=== PATIENT | male | born 1980 | race Caucasian/White ===

== ENCOUNTER 2024-09-12 08:07 | Outpatient (CLI) | payer BC, SELFPAY ==
--- NOTE | ~2024-09-12 | MR_ITS ---
MRI of the left knee Clinical history: Pain Technique: Coronal proton density and proton density-weighted images, sagittal proton-density and T2 fat-sat images, and axial proton-density fat-saturated images were acquired. Findings: ACL is thickened with extensive increased signal within intact fibers, compatible severe mu coid degenerative change. Posterior cruciate ligament is intact. Medial collateral ligament and the l ateral collateral ligament complex are intact. There is large vertical/radial tear at the posterior horn of the medial meniscus near the root. No la teral meniscal tear evident. Articular cartilage is relatively well preserved throughout the knee. Bone marrow signals are unremar kable. Extensor mechanism is intact. There is small joint effusion. No Mejia's cyst. Impression: Large vertical/radial tear at the posterior horn of the medial meniscus near the root. Small joint effusion. 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 Reviewed, dictated and finalized at [facility]. DETAILER Impression: Large vertical/radial tear at the posterior horn of the medial meniscus near th e root. Small joint effusion. 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
== END 2024-09-12 08:08 | disposition home or self-care (01) ==
LOC: GOSHIMG 08:08
PROVIDERS: PCP Specialist; Visit Provider Specialist
DX: M25.562 Pain in left knee (principal); S83.242A Other tear of medial meniscus, current injury, left knee, initial encounter; M25.462 Effusion, left knee
CPT/HCPCS: 73721